=== PATIENT | male | born 1975 | race Caucasian/White ===

== ENCOUNTER 2018-02-26 10:04 | Emergency (ER) | payer OTHER ==
[~2018-02-26] VITALS: Ht 177.8 cm; Wt 117.9 kg
[~2018-02-26 10:04] MED LIST: ADULT LOW DOSE81 MG; ALLOPURINOL 30300 M1 PO; CIPROFLOXACIN500 M3 GT; CLARITIN10 MG; FLEXERIL PO; INDOMETHACIN 5050 M1 PO; KEFLEX500 MG; LEVAQUIN 750 M750 MG PO; LORTABELXR PO; NOHOMEMEDICATIONS; NORCO 5-325 TA1 EACH PO; OMEPRAZOLE; PHENERGAN 25 MG25 MG PO; SINGULAIR 10 MG10 M1 PO; TOBREX3.5 GM OP; TOPAMAX 25 MG T25 M1 PG; TORADOL 10 MG T10 MG PO; VICODIN; ZOFRAN ODT4 MG PO; ZOFRAN4 MG PO
[2018-02-26] MEDS ORDERED: FLONASE 0.05%50 MCG NASAL (10:17)
[2018-02-26 10:35] LABS: HEMATOCRIT 48.2 % (42.0-52.0); HEMOGLOBIN 16.7 gm/dL (14.0-18.0); MCH 30.6 pg (26.0-34.0); MCHC 34.7 g/dL (28.0-37.0); MCV 88.4 fL (80.0-100.0); MPV 9.8 fl. (7.2-11.1); NUCLEATED RBCS 0 /100WBC; PLATELET COUNT* 206 thou/uL (150-400); RBC 5.46 mil/uL (4.50-6.00); RDW-CV 12.9 % (10.5-14.5)
[2018-02-26 10:44] LABS: ANION GAP 10 mmol/L (7-16); BUN 13 mg/dL (7-18); CALCIUM 9.3 mg/dL (8.5-10.1); CHLORIDE 103 mmol/L (98-107); CO2 25 mmol/L (21-32); CREATININE 1.2 mg/dL (0.6-1.3); GLUCOSE 106 mg/dL (70-99); POTASSIUM 4.1 mmol/L (3.5-5.1); SODIUM 138 mmol/L (136-145)
[2018-02-26 10:47] LABS: PROTIME 10.1 Seconds (9.20-11.50)
[2018-02-26 11:03] LABS: ALBUMIN 4.4 g/dL (3.4-5.0); ALKALINE PHOSPHATASE 135 U/L (46-116); CK-MB MASS 0.7 ng/mL (<0.5-3.6); LIPASE 54 U/L (73-393); MAGNESIUM 1.8 mg/dL (1.8-2.4); NT-PRO BRAIN NAT PEPTIDE 25 pg/mL (<300); SGOT 35 U/L (15-37); SGPT 73 U/L (30-65); TOTAL BILIRUBIN 1.5 mg/dL (<0.1-1.0); TOTAL PROTEIN 7.6 g/dL (6.4-8.2); TROPONIN-I LEVEL <0.06 ng/mL (<0.06)
[2018-02-26 11:18] LABS: ABSOLUTE BASOPHILS 0.2 thou/uL (0.0-0.2); ABSOLUTE LYMPHOCYTES 1.5 thou/uL (0.8-5.3); ABSOLUTE MONOCYTES 0.4 thou/uL (0.0-1.2); ABSOLUTE NEUTROPHILS 18.9 thou/uL (1.6-8.1); POIKILOCYTOSIS Occasional
[2018-02-26 11:19] LABS: PLATELET ESTIMATE ADEQUATE
[2018-02-26 11:54] VITALS: BP 116/71
--- NOTE | 2018-02-27 09:12 | EKG ---
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 NEGRETE : 1975 Requested By: Wu Stephen Order Number: [id number] MD: Huey Bloom Measurements Intervals Accord Rate: 70 P: 29 ID: [id number] QRS: 14 QRSD: 91 T: -1 QT: 376 QTc: 406 Interpretive Statements Sinus rhythm RSR' in V1 or V2, right VCD or RVH Borderline T abnormalities, inferior leads Compared to ECG 11/19/2016 11:32:18 T-wave abnormality now present Sinus bradycardia no longer present Electronically Signed On 02-27-2018 9:12:17 CDT by Huey Bloom [email or web address] <ELECTRONICALLY SIGNED> By: Huey Bloom MD, FACC 02/27/18 0912 1009 [id number] Huey Bloom MD, [facility] /EPI
== END 2018-02-26 11:57 | disposition home or self-care (01) ==
LOC: M.ERS 10:04
PROVIDERS: Family Medicine
DX: F41.0 Panic disorder [episodic paroxysmal anxiety] (principal); Z87.442 Personal history of urinary calculi; Z88.1 Allergy status to other antibiotic agents; Z88.8 Allergy status to other drugs, medicaments and biological substances; Z91.041 Radiographic dye allergy status; Z88.0 Allergy status to penicillin